=== PATIENT | male | born 1970 | race Two or more races ===

== ENCOUNTER 2022-10-28 16:04 | Emergency (ER) | payer BC ==
[~2022-10-28] VITALS: Ht 180.3 cm; Wt 79.4 kg
--- NOTE | 2022-10-28 16:35 | NUR ---
PT BROUGHT IN BY PRIVATE CAR WITH COMPLAINT OF RIGHT KNEE PAIN AND SWELLING PT STATES CANNOT STAND OR BEND KNEE. PT IS IN ROOM 7 AT THIS TIME
[2022-10-28] MEDS ORDERED: IBUPROFEN 600 MG TABLET PO ONE (17:00)
[2022-10-28] MEDS ORDERED: HYDROCODONE/APAP 5/325MG TABLET PO ONE (17:00)
[2022-10-28] MEDS ORDERED: CLINDAMYCIN HCL 150 MG CAPSULE PO ONE (17:00)
[2022-10-28] MEDS ORDERED: SULFAMETH/TRIMETH 800/160 MG 1 UDTAB TABLET PO ONE (17:00)
[2022-10-28] MEDS ORDERED: HYDROCODONE/APAP 5/325MG TABLET ONE (17:08)
[2022-10-28] MEDS ORDERED: CLINDAMYCIN HCL 150 MG CAPSULE ONE (17:09)
[2022-10-28] MEDS ORDERED: SULFAMETH/TRIMETH 800/160 MG 1 UDTAB TABLET ONE (17:09)
[2022-10-28] MEDS ORDERED: IBUPROFEN 600 MG TABLET ONE (17:09)
--- NOTE | 2022-10-28 17:15 | NUR ---
MEDICATIONS ORDERED GIVEN PO
--- NOTE | 2022-10-28 17:26 | NUR ---
[facility]: [facility]: [phone] IF PATIENT IS DISCHARGED BEFORE 1800, CALL [facility] AT [phone] IF DISCHARGED AFTER 1800, CALL [facility] AT [phone] AND WILL SET UP UBER FOR PATIENT.
[2022-10-28] MEDS ORDERED: HYDR-3972 PO (18:07)
[2022-10-28] MEDS ORDERED: IBUP-1953 PO (18:07)
[2022-10-28] MEDS ORDERED: SULF1TAB48 PO (18:07)
[2022-10-28] MEDS ORDERED: CLIN300C12 PO (18:07)
[2022-10-28 18:41] VITALS: BP 136/82
[2022-10-29] MEDS ORDERED: OXYC-128 PO (18:00)
== END 2022-10-28 17:26 | disposition home or self-care (01) ==
LOC: ER 16:24
DX: L03.115 Cellulitis of right lower limb (principal); Z88.0 Allergy status to penicillin
CPT/HCPCS: 73562

== ENCOUNTER 2022-10-29 17:21 | Emergency (ER) | payer BC ==
[~2022-10-29] VITALS: Ht 182.9 cm; Wt 78.0 kg
[~2022-10-29 17:21] MED LIST: CLIN300C12 PO; HYDR-3972 PO; IBUP-1953 PO; SULF1TAB48 PO
[2022-10-29 17:34] VITALS: BP 116/77
--- NOTE | 2022-10-29 17:49 | NUR ---
AT BEDSIDE FOR EVAL
[2022-10-29] MEDS ORDERED: KETOROLAC TROMETHAMINE INJ 60 MG/2 ML VIAL IM ONE ×2 (17:59→18:00)
[2022-10-29] MEDS ORDERED: oxyCODONE/APAP (5/325 MG) 1 UDTAB TABLET PO ONE (18:00)
[2022-10-29] MEDS ORDERED: OXYC-128 PO (18:00)
[2022-10-29] MEDS ORDERED: oxyCODONE/APAP (5/325 MG) 1 UDTAB TABLET ONE (18:00)
== END 2022-10-29 18:23 | disposition home or self-care (01) ==
LOC: ER 17:25
DX: L03.115 Cellulitis of right lower limb (principal); Z88.0 Allergy status to penicillin; Z79.899 Other long term (current) drug therapy
CPT/HCPCS: 99283; 96372; J1885; A6403